=== PATIENT | female | born 1955 | race Caucasian/White ===

== ENCOUNTER → 2020-09-03 09:39 | Outpatient (BNVA) | payer MEDICARE, SELFPAY | PROVIDERS: PCP Family Medicine; Visit Provider Internal Medicine | DX: J44.9 Chronic obstructive pulmonary disease, unspecified (principal); Z79.51 Long term (current) use of inhaled steroids; Z87.891 Personal history of nicotine dependence | CPT/HCPCS: 99212 ==

== ENCOUNTER 2020-11-17 08:43 | Outpatient (REF) | payer MEDICARE, SELFPAY ==
--- NOTE | ~2020-11-17 | MM_ITS ---
EXAMINATION: MM SCREENING DIGITAL BREAST TOMOSYNTHESIS, BILATERAL CLINICAL INFORMATION: Screening. Asymptomatic. The lifetime risk of breast cancer based on the Tyrer-Cuzick Model is 2%. COMPARISON: Mammography: 09/04/2018, 10/02/2015, 04/12/2014 TECHNIQUE: Digital breast tomosynthesis is performed in both the craniocaudal and mediolateral oblique views along with computer-aided detection (CAD). Synthesized 2D images are generated from the tomosynthesis. Additional left MLO view is provided. FINDINGS: There are scattered areas of fibroglandular density (ACR BI-RADS breast composition Category b). There are no significant masses, abnormal calcifications, or other abnormalities. Parenchymal pattern is similar to prior studies. The axilla and skin contours are unremarkable. MM/MM tomosynthesis screening BI IMPRESSION: No mammographic evidence of malignancy. ASSESSMENT: BI-RADS 1: Negative RECOMMENDATION: Routine annual mammography screening. This patient's information was entered into a reminder system with a target due date for their next mammogram.
--- NOTE | ~2020-11-17 | MM_ITS ---
EXAMINATION: BONE DENSITOMETRY CLINICAL INDICATION: Postmenopausal. COMPARISON: Baseline BD dated 09/04/2018. TECHNIQUE: Using a [employer] DXA System (software version: 13.1) manufactured by [employer], dual-energy x-ray absorptiometry was performed of the lumbar spine and left hip. The images are of good technical quality. Summary results are attached. FINDINGS: AP SPINE L1-L4: Current: BMD 0.901 g/cm2, Z-score -1.3, T-score -2.3, osteopenia, 1.5% increase from baseline (<5% change is not significant). Baseline: BMD 0.888 g/cm2. LEFT FEMUR, NECK: Current: BMD 0.767 g/cm2, Z-score -0.8, T-score -1.9, osteopenia. Baseline: BMD 0.758 g/cm2. LEFT FEMUR, TOTAL: Current: BMD 0.848 g/cm2, Z-score -0.4, T-score -1.3, osteopenia, 3.2% increase from baseline (<5% change is not significant). Baseline: BMD 0.822 g/cm2. IDENTIFIED RISK FACTORS: Early menopause, secondary osteoporosis hysterectomy, bilateral oophorectomy. HISTORY OF FRACTURE: None listed. MEDICATIONS: None listed. MM/XR DEXA axial skeleton IMPRESSION: 1. DIAGNOSIS: Osteopenia based on the lowest T-score value of -2.3 in the lumbar spine applying World Health Organization criteria. 2. 10-YEAR FRACTURE RISK PREDICTION, FRAX: Major osteoporotic fracture (clinical spine, forearm, hip or shoulder) 9.8%. Hip fracture 1.4%. 3. Treatment Recommendations: NOF guidelines recommend consideration for treatment in postmenopausal women and men age 50 and older presenting with the following: -A hip or vertebral (clinical or morphometric) fracture. -T-score less than or equal to -2.5 at the femoral neck or spine after appropriate evaluation to exclude secondary causes. -Low bone mass at the hip or spine and a 10-year fracture probability by FRAX of greater than or equal to 3% for hip fracture or greater than or equal to 20% for major osteoporotic fracture based on the [place] adapted WHO algorithm. 4. Other Recommendations: All treatment decisions require clinical judgment and consideration of individual patient factors, including patient preferences, comorbidities, previous drug use, risk factors not captured in the FRAX model (e.g. frailty, falls, vitamin D deficiency, increased bone turnover, interval significant decline in bone density) and possible under or overestimation of fracture risk by FRAX. Additional medical evaluation for secondary cause of low bone mineral density may be appropriate. FUTURE SCAN RECOMMENDATION: People with diagnosed cases of osteoporosis or at high risk for fracture should have regular bone mineral density tests. For patients eligible for Medicare, routine testing is allowed once every 2 years. The testing frequency can be increased to one year for patients who have rapidly progressing disease, those who are receiving or discontinuing medical therapy to restore bone mass, or have additional risk factors.
== END 2020-11-17 08:44 | disposition home or self-care (01) ==
LOC: HO.MAMMO 08:43
PROVIDERS: Visit Provider Family Medicine
DX: Z12.31 Encounter for screening mammogram for malignant neoplasm of breast (principal); Z13.820 Encounter for screening for osteoporosis; M85.80 Other specified disorders of bone density and structure, unspecified site; Z78.0 Asymptomatic menopausal state; Z98.890 Other specified postprocedural states
CPT/HCPCS: 77063; 77067; 77080

== ENCOUNTER 2020-12-14 12:19 | Outpatient (REF) | payer MEDICARE, SELFPAY ==
--- NOTE | ~2020-12-14 | CT_ITS ---
EXAMINATION: CT CHEST SCREENING CLINICAL INFORMATION: Personal history of nicotine dependence. COMPARISON: None. TECHNIQUE: Multidetector volumetric CT imaging of the chest is performed without contrast using low dose technique. Additional 2D coronal and sagittal reformatted images and axial 3D maximum intensity projection (MIP) images are generated on the CT workstation. This CT examination was performed using dose optimization techniques as appropriate, variously including the following: *Automated exposure control *Adjustment of mA and/or kV according to patient size (this includes techniques or standardized protocols for targeted exams where dose is matched to indication/reason for exam; i.e. extremities or head) *Use of iterative reconstruction technique DLP: 50 mGy-cm. FINDINGS: LUNGS: The lungs are well expanded with 6 mm and 5 mm nodules in the right upper lobe anterior segment image 24/5. There is a 4 mm nodule right upper lobe anterior segment slightly inferiorly on axial image 26/4. There are 2 mm nodules right lower lobe axial image 27/4 and left lower lobe image 26/4. There is a 2 mm calcified nodule right middle lobe and a 6 mm nodule right lower lobe axial image 35/4. A 6 mm nodule is seen in the right lower lobe axial image 37/4. There is focal opacity right lung base CP angle measuring 1.7 cm. MEDIASTINUM: Thyroid lobes are symmetrical. The central trachea and the bronchi are widely patent. The heart size and the great vessels are normal caliber. No abnormal-sized mediastinal or hilar lymph nodes seen. No pericardial effusion. PLEURA: There is no pleural effusion. No pleural mass or thickening. AXILLA: No lymphadenopathy. UPPER ABDOMEN: Visualized liver, spleen, pancreas and bilateral adrenal glands are unremarkable. OSSEOUS STRUCTURES: There is mild ventral spondylosis. No lytic or sclerotic process seen. CT/CT lung screening IMPRESSION: Largest 6 mm nodules right upper and lower lobes. There are several additional smaller nodules seen. No abnormal mediastinal or hilar lymphadenopathy. ASSESSMENT: Lung-RADS category 2: Benign. RECOMMENDATION: Recommend low-dose annual CT chest.
== END 2020-12-14 12:20 | disposition home or self-care (01) ==
LOC: HO.CT 12:19
PROVIDERS: PCP Family Medicine; Visit Provider Physician Assistant Medical
DX: Z12.2 Encounter for screening for malignant neoplasm of respiratory organs (principal); Z87.891 Personal history of nicotine dependence
CPT/HCPCS: 71271

== ENCOUNTER → 2021-03-09 09:12 | Outpatient (BNVA) | payer MEDICARE, SELFPAY | PROVIDERS: PCP Family Medicine; Visit Provider Internal Medicine | DX: J44.9 Chronic obstructive pulmonary disease, unspecified (principal); R91.8 Other nonspecific abnormal finding of lung field | CPT/HCPCS: 99212 ==

== ENCOUNTER 2021-12-08 10:13 | Outpatient (REF) | payer MEDICARE, SELFPAY ==
--- NOTE | ~2021-12-08 | CT_ITS ---
EXAMINATION: CT CHEST WITHOUT CONTRAST CLINICAL INFORMATION: COPD COMPARISON: Previous chest CT most recent November 2020 and lung windows from abdominal and pelvic CT scan September 2014 TECHNIQUE: Multidetector volumetric CT imaging of the chest was done. Axial MIP volume rendering provided. Sagittal and coronal reformatted images were obtained. This CT examination was performed using dose optimization techniques as appropriate, variously including the following: *Automated exposure control *Adjustment of mA and/or kV according to patient size (this includes techniques or standardized protocols for targeted exams where dose is matched to indication/reason for exam; i.e. extremities or head) *Use of iterative reconstruction technique DLP: 147 mGy-cm FINDINGS: LUNGS: There is evidence of severe emphysema. There is a 3 mm calcified right upper lobe nodule axial image 27 series 6 there is a 2 mm calcified left upper lobe nodule axial image 58 series 6 there is a 2 mm noncalcified right upper lobe nodule axial image 69 series 6 there is a 3 mm peripheral or subpleural right lower lobe nodule adjacent to the mediastinum axial image 85 series 6 There is a 4 mm calcified right middle lobe nodule axial image 101 series 6. There is a 2 x 5 mm peripheral or subpleural right middle lobe nodule adjacent to the minor fissure axial image 102 series 6. There is a 6 mm slightly heterogeneous attenuation central right lower lobe nodule axial image 109 series 6. There is an oval-shaped 4 x 9 mm central right lower lobe nodule axial image 116 series 6. This is adjacent focal bronchiectasis. There is a 1 x 1.5 cm irregularly-shaped right lower lobe nodule axial image 134 series 6. Pulmonary nodules are stable from November 2020 exam. No new pulmonary nodule is seen. 6 mm heterogeneous central right lower lobe nodule is not included in the [id number] on previous abdominal pelvic CT scan and cannot be compared. The oval shaped 4 x 9 mm right lower lobe central nodule can be seen September 2014 and measured approximately 4 x 7 mm axial image 20 series 3. The largest irregularly-shaped right lower lobe nodule can be seen and is slightly increased in size compared to 2015 exam measuring 0.5 x 1.4 cm. MEDIASTINUM: There is atherosclerotic disease and mild coronary artery calcification. The mediastinum is otherwise normal. PLEURA: There is no pleural effusion. No pleural mass or thickening. AXILLA: No lymphadenopathy. UPPER ABDOMEN: Unremarkable. OSSEOUS STRUCTURES: There are degenerative changes of the spine. CT/CT chest wo con IMPRESSION: Severe emphysema. Stable pulmonary nodules. Largest pulmonary nodule measures 1 x 1.5 cm in the right lower lobe. Some right lower lobe pulmonary nodules can be seen on lung windows from abdominal pelvic CT scan from 2015 and are increased in size. Continued chest CT or PET/CT imaging follow-up or tissue sampling should be considered. Fleischner guidelines were followed.
== END 2021-12-08 10:14 | disposition home or self-care (01) ==
LOC: HO.CT 10:13
PROVIDERS: Visit Provider Nurse Practitioner
DX: J44.9 Chronic obstructive pulmonary disease, unspecified (principal); Z87.891 Personal history of nicotine dependence
CPT/HCPCS: 71250